=== PATIENT | male | born 1985 | race Caucasian/White ===

== ENCOUNTER → 2024-11-11 | Outpatient (CLI) | payer SELFPAY, OTHER ==
--- NOTE | 2024-11-11 10:31 | RAD_ITS ---
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 AP, bilateral oblique, lateral and open-mouth odontoid COMPARISON: None available FINDINGS: Cervical spine is visualized on the lateral view from the skull base to the bottom of C7. No fracture or malalignment. No prevertebral soft tissue swelling. Mild disc space narrowing and anterior osteophyte formation C5-6. No osseous foraminal narrowing identified on the oblique views. Visualized apices appear clear. RAD/Cerv Spine 4 or 5 Views IMPRESSION: C5-6 spondylosis/discogenic change as above. Reading Location: [id number]
--- NOTE | 2024-11-11 10:31 | RAD_ITS ---
EXAM: XR Thoracic Spine, 2 Views CLINICAL INDICATION: SEGMENTAL AND SOMATIC DYSFUNCTION OF THORACIC REGION TECHNIQUE: Frontal and lateral views of the thoracic spine. COMPARISON: No relevant prior studies available. 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 Normal alignment. No acute fracture. DISC SPACES: See above. SOFT TISSUES: Unremarkable. RAD/Thoracic Spine 2 Views IMPRESSION: 1. No acute fracture. 2. Degenerative changes thoracic spine as described. Reading Location: [facility]
== END | disposition home or self-care (01) ==
PROVIDERS: Referring Provider Chiropractor Orthopedic; Visit Provider Chiropractor Orthopedic
DX: M99.01 Segmental and somatic dysfunction of cervical region (principal); M99.02 Segmental and somatic dysfunction of thoracic region
CPT/HCPCS: 72050; 72070